=== PATIENT | male | born 1975 ===

== ENCOUNTER 2019-02-01 19:57 | Emergency (ER) | payer BC ==
[2019-02-01] MEDS ORDERED: LIDOCAINE 1% MPF 5 ML VIAL ONE (21:09)
--- NOTE | 2019-02-01 21:23 | ER ---
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 Transition of care: patient was not received from another setting of care. Onset of symptoms was February 01, 2019. Risk Assessment: Do you want to hurt yourself or someone else? Patient reports no desire to harm self or others. Initial Sepsis Screen: Does the patient meet any 2 criteria? No. Patient's initial sepsis screen is negative. Does the patient have a suspected source of infection? No. Patient's initial sepsis screen is negative. Care prior to arrival: None. 20:17 Method Of Arrival: Ambulatory iw 20:17 Acuity: BENITO 4 iw Triage Assessment: 20:30 Injury Description: Deformity sustained to Left Pinky finger. wh Historical: - Allergies: 20:18 No Known Allergies; iw - Home Meds: 20:18 None [Active]; iw - PMHx: 20:18 None; iw - PSHx: 20:18 None; iw - Immunization history:: Adult Immunizations not up to date. - Social history:: Smoking status: . - Ebola Screening: : Patient negative for fever greater than or equal to 101.5 degrees Fahrenheit, and additional compatible Ebola Virus Disease symptoms Patient denies exposure to infectious person Patient denies travel to an Ebola-affected area in the 21 days before illness onset No symptoms or risks identified at this time. Screenin:30 Fall Risk None identified. wh 20:57 Abuse screen: Denies threats or abuse. Denies injuries from another. Nutritional wh screening: No deficits noted. Tuberculosis screening: No symptoms or risk factors identified. Assessment: 20:30 General: Appears in no apparent distress. Behavior is calm, cooperative, appropriate wh for age. Pain: Denies pain. Neuro: Level of Consciousness is awake, alert, obeys commands, Oriented to person, place, time, situation, Appropriate for age. Cardiovascular: Capillary refill < 3 seconds. Respiratory: Airway is patent Respiratory effort is even, unlabored, Respiratory pattern is regular, symmetrical. GI: Abdomen is flat, non-distended. : No signs and/or symptoms were reported regarding the genitourinary system. EENT: No signs and/or symptoms were reported regarding the EENT system. Derm: Skin is intact, is healthy with good turgor, Skin is pink, warm \T\ dry. normal. Musculoskeletal: Left Pinky finger. 21:34 Reassessment: Patient appears in no apparent distress at this time. No changes from previously documented assessment. Patient and/or family updated on plan of care and expected duration. Pain level reassessed. Patient is alert, oriented x 3, equal unlabored respirations, skin warm/dry/pink. Patient denies pain at this time. Vital Signs: 20:18 BP 114 / 83; Pulse 61; Resp 16; Temp 98.3; Pulse Ox 98% on R/A; Weight 72.12 kg; Height iw 5 ft. 6 in. (167.64 cm); Pain 6/10; 20:58 BP 141 / 91; Pulse 70; Resp 18; Pulse Ox 96% on R/A; wh 21:30 BP 111 / 67; Pulse 53; Resp 18; Pulse Ox 98% ; wh 20:18 Body Mass Index 25.66 (72.12 kg, 167.64 cm) iw ED Course: 19:59 Patient arrived in ED. ag3 20:18 Triage completed. iw 20:18 Arm band placed on. iw 20:30 Patient has correct armband on for positive identification. Bed in low position. Call light in reach. Side rails up X 1. Pulse ox on. NIBP on. 20:40 Tawanda Lorenz MD is Attending Physician. tw4 20:42 Luis Angel Delgadillo is Primary Nurse. wh 20:54 XRAY Hand LEFT 3 View In Process Unspecified. EDMS 21:33 No provider procedures requiring assistance completed. Patient did not have IV access during this emergency room visit. Administered Medications: No medications were administered Outcome: 21:22 Discharge ordered by . tw4 21:33 Discharged to home ambulatory. wh 21:33 Condition: stable 21:33 Discharge instructions given to patient, Instructed on discharge instructions, follow up and referral plans. medication usage, POC Finger Dislocation Demonstrated understanding of instructions, follow-up care, medications, splint care, POC Prescriptions given X 1. 21:35 Patient left the ED. wh Signatures: Dispatcher [employer] Kesha Gardner, Luis Angel Dacosta RN, Terrence, MD MD tw4 Olesya Martínez ag3
[2019-02-01 23:13] VITALS: BP 111/67
[2019-02-01 23:30] VITALS: TEMP 98.1; O2SAT 99
--- NOTE | 2019-02-02 08:31 | RAD REPORT ---
EXAM DESCRIPTION: RAD - Hand Left 3 View - 02/01/2019 8:54 pm CLINICAL HISTORY: Left hand pain, trauma COMPARISON: None. FINDINGS: There is dorsal dislocation of the left fifth middle phalanx. No fracture identified. Ther e is 8 mm of overlap at the dislocations site. No fracture fragment seen. Remainder of the left hand shows no acute bone or joint finding. No foreign body or other soft tissue abnormality. IMPRESSION: Dislocation of the left fifth middle phalanx. No fracture component seen.
--- NOTE | 2019-02-02 21:38 | EDPHYS ---
Physician Documentation [facility] Name: Mark Phelps Age: 43 yrs Sex: Male : 1975 Arrival Date: 02/01/2019 Time: 19:59 Bed 19 Private MD: ED Physician Tawanda Lorenz HPI: 02/02 04:01 This 43 yrs old Male presents to ER via Ambulatory with complaints of Hand Injury. tw4 04:01 The patient or guardian reports decreased range of motion, deformity, injury. The tw4 complaints affect the DIP of left little finger. Context: The problem was sustained at a sports field or court, resulted from a direct blow, by a solid object. Onset: The symptoms/episode began/occurred just prior to arrival. Modifying factors: The symptoms are alleviated by nothing, the symptoms are aggravated by nothing. Associated signs and symptoms: The patient has no apparent associated signs or symptoms. Severity of symptoms: At their worst the symptoms were mild, in the emergency department the symptoms are unchanged. The patient has not experienced similar symptoms in the past. Historical: - Allergies: 02/01 20:18 No Known Allergies; iw - Home Meds: 20:18 None [Active]; iw - PMHx: 20:18 None; iw - PSHx: 20:18 None; iw - Immunization history:: Adult Immunizations not up to date. - Social history:: Smoking status: . - Ebola Screening: : Patient negative for fever greater than or equal to 101.5 degrees Fahrenheit, and additional compatible Ebola Virus Disease symptoms Patient denies exposure to infectious person Patient denies travel to an Ebola-affected area in the 21 days before illness onset No symptoms or risks identified at this time. ROS: 02/02 04:01 Constitutional: Negative for fever, chills, and weight loss, Eyes: Negative for injury, tw4 pain, redness, and discharge. MS/extremity: Positive for injury or acute deformity, decreased range of motion, deformity, Negative for abrasion, bite, contusion, laceration, pain, paresthesias. Exam: 04:01 Constitutional: This is a well developed, well nourished patient who is awake, alert, tw4 and in no acute distress. Head/Face: Normocephalic, atraumatic. Chest/axilla: Normal chest wall appearance and motion. Nontender with no deformity. No lesions are appreciated. Cardiovascular: Regular rate and rhythm with a normal S1 and S2. No gallops, murmurs, or rubs. Normal PMI, no JVD. No pulse deficits. Respiratory: Lungs have equal breath sounds bilaterally, clear to auscultation and percussion. No rales, rhonchi or wheezes noted. No increased work of breathing, no retractions or nasal flaring. Abdomen/GI: Soft, non-tender, with normal bowel sounds. No distension or tympany. No guarding or rebound. No evidence of tenderness throughout. Skin: Warm, dry with normal turgor. Normal color with no rashes, no lesions, and no evidence of cellulitis. 04:01 Musculoskeletal/extremity: Extremities: noted in the dorsal aspect of distal phalanx of left little finger: decreased ROM, deformity, ROM: limited active range of motion due to pain, limited passive range of motion due to pain. Vital Signs: 02/01 20:18 BP 114 / 83; Pulse 61; Resp 16; Temp 98.3; Pulse Ox 98% on R/A; Weight 72.12 kg; Height iw 5 ft. 6 in. (167.64 cm); Pain 6/10; 20:58 BP 141 / 91; Pulse 70; Resp 18; Pulse Ox 96% on R/A; wh 21:30 BP 111 / 67; Pulse 53; Resp 18; Pulse Ox 98% ; wh 20:18 Body Mass Index 25.66 (72.12 kg, 167.64 cm) iw Procedures: 02/02 04:01 Reduction: of the DIP of left little finger, using traction, manipulation, Immobilized tw4 with finger splint, Patient tolerated well. Joint Treatment:. MDM: 02/01 20:40 Patient medically screened. tw4 02/01 20:43 Order name: XRAY Hand LEFT 3 View wh Administered Medications: No medications were administered Disposition: 02/01/19 21:22 Discharged to Home. Impression: Dislocation of distal interphalangeal joint of left little finger. - Condition is Stable. - Discharge Instructions: Finger or Thumb Dislocation, [id number]. - Prescriptions for Ibuprofen 800 mg Oral Tablet - take 1 tablet by ORAL route every 8 hours As needed take with food; 30 tablet. - Medication Reconciliation Form, Thank You Letter, Antibiotic Education, Prescription Opioid Use form. - Follow up: Private Physician; When: Upon discharge from the Emergency Department; Reason: Recheck today's complaints, Continuance of care. - Problem is new. - Symptoms have improved. Signatures: Dispatcher [employer] EDKesha Lomax, Luis Angel Dacosta RN, Terrence, MD MD tw4 Corrections: (The following items were deleted from the chart) 20:41 20:19 Hand Left 3 View+RAD.RAD.BRZ ordered. [facility] 21:35 21:22 02/01/2019 21:22 Discharged to Home. Impression: Dislocation of distal wh interphalangeal joint of left little finger. Condition is Stable. Forms are Medication Reconciliation Form, Thank You Letter, Antibiotic Education, Prescription Opioid Use. Follow up: Private Physician; When: Upon discharge from the Emergency Department; Reason: Recheck today's complaints, Continuance of care. Problem is new. Symptoms have improved. tw4 02/02 04:08 04:01 Constitutional: This is a well developed, well nourished patient who is awake, tw4 alert, and in no acute distress. Head/Face: Normocephalic, atraumatic. Chest/axilla: Normal chest wall appearance and motion. Nontender with no deformity. No lesions are appreciated. Cardiovascular: Regular rate and rhythm with a normal S1 and S2. No gallops, murmurs, or rubs. Normal PMI, no JVD. No pulse deficits. Respiratory: Lungs have equal breath sounds bilaterally, clear to auscultation and percussion. No rales, rhonchi or wheezes noted. No increased work of breathing, no retractions or nasal flaring. Abdomen/GI: Soft, non-tender, with normal bowel sounds. No distension or tympany. No guarding or rebound. No evidence of tenderness throughout. Back: No spinal tenderness. No costovertebral tenderness. Full range of motion. MS/ Extremity: Pulses equal, no cyanosis. Neurovascular intact. Full, normal range of motion. Neuro: Awake and alert, GCS 15, oriented to person, place, time, and situation. Cranial nerves II-XII grossly intact. Motor strength 5/5 in all extremities. Sensory grossly intact. Cerebellar exam normal. Normal gait. tw4
== END 2019-02-01 21:35 | disposition home or self-care (01) ==
LOC: ER 19:57
PROC: 0RSXXZZ Reposition Left Finger Phalangeal Joint, External Approach (ICD-10-PCS; principal; 2019-02-01)
DX: S63.297A Dislocation of distal interphalangeal joint of left little finger, initial encounter (principal); W21.05XA Struck by basketball, initial encounter; Y93.67 Activity, basketball; Y92.310 Basketball court as the place of occurrence of the external cause
CPT/HCPCS: 99283